=== PATIENT | female | born 1970 | race Caucasian/White ===

== ENCOUNTER 2018-01-05 11:38 | Emergency (ER) | payer OTHER ==
[~2018-01-05] VITALS: Ht 172.7 cm; Wt 90.3 kg
[2018-01-05 11:58] VITALS: Ht 172.7 cm; Wt 90.3 kg
[2018-01-05 15:30] VITALS: BP 140/78
== END 2018-01-05 15:30 | disposition home or self-care (01) ==
LOC: ED 11:38
DX: R19.7 Diarrhea, unspecified (principal); R11.10 Vomiting, unspecified; R10.10 Upper abdominal pain, unspecified
CPT/HCPCS: J1885

== ENCOUNTER 2018-04-23 13:14 | Emergency (ER) | payer OTHER ==
[~2018-04-23] VITALS: Ht 167.6 cm; Wt 91.2 kg
[2018-04-23 16:54] LABS: BASOPHIL % 0.9 % (0-2); PLATELET COUNT 334 x10^3mcL (130-400)
[2018-04-23 17:02] LABS: RED CELL DISTRIBUTION WIDTH 22.1 % (11.5-14.5)
[2018-04-23 17:03] LABS: CHLORIDE SERUM 103 mmol/L (98-107); CREATININE SERUM 0.5 mg/dL (0.6-1.0); GFR1 > 60 mL/min; GLUCOSE SERUM 101 mg/dL (74-106); POTASSIUM SERUM 3.6 mmol/L (3.5-5.1); SODIUM SERUM 138 mmol/L (136-145)
[2018-04-23 17:08] LABS: ALBUMIN 3.9 g/dL (3.4-5.0); ALKALINE PHOSPHATASE 63 U/L (46-116); ALT/SGPT 12 U/L (14-59); AST/SGOT 20 U/L (15-37); BILIRUBIN TOTAL 1.89 mg/dL (0.20-1.00); TOTAL PROTEIN, SERUM 7.9 g/dL (6.4-8.2); URIC ACID 5.3 mg/dL (2.6-6.0)
[2018-04-23 17:14] LABS: ovalocyte/elliptocyte 1+; rbc morphology (normal/abnorm) ABNORMAL (NORMAL)
[2018-04-23 17:27] LABS: AMPHETAMINE QUAL UR NONE DETECTED (See below)
[2018-04-23 21:10] VITALS: BP 145/94
== END 2018-04-23 21:11 | disposition home or self-care (01) ==
LOC: ED 13:14
PROVIDERS: Emergency Medicine
DX: N93.8 Other specified abnormal uterine and vaginal bleeding (principal); D64.9 Anemia, unspecified; G47.00 Insomnia, unspecified; D25.9 Leiomyoma of uterus, unspecified
CPT/HCPCS: 36415

== ENCOUNTER 2018-04-26 22:19 | Emergency (ER) | payer OTHER ==
[~2018-04-26] VITALS: Ht 167.6 cm; Wt 90.0 kg
[2018-04-26 22:49] VITALS: BP 148/96; Ht 167.6 cm; Wt 90.0 kg
== END 2018-04-27 00:34 | disposition home or self-care (01) ==
LOC: ED 22:19
DX: B85.0 Pediculosis due to Pediculus humanus capitis (principal)